=== PATIENT | male | born 1965 | race Caucasian/White ===

== ENCOUNTER 2017-10-24 07:31 | Day surgery (SDC) | payer OTHER ==
[2017-10-24] MEDS ORDERED: Lactated Ringer's 500 ML IV ONE (08:01)
[2017-10-24 08:09] VITALS: O2SAT 98
[2017-10-24] MEDS ORDERED: Midazolam 2 MG/2 ML VIAL ONE (08:28)
[2017-10-24] MEDS ORDERED: Propofol 10 mg/ml Inj (20 ML) ONE (08:29)
[2017-10-24 09:16] VITALS: BP 116/75; PULSE 66; RESP 18; TEMP 97
== END 2017-10-24 10:23 | disposition home or self-care (01) ==
LOC: H.ENDO 07:31
PROVIDERS: ATTEND Internal Medicine Gastroenterology
DX: Z12.11 Encounter for screening for malignant neoplasm of colon (principal); E11.9 Type 2 diabetes mellitus without complications; E78.5 Hyperlipidemia, unspecified; K21.9 Gastro-esophageal reflux disease without esophagitis; K64.8 Other hemorrhoids
CPT/HCPCS: 45378; 82948; J2001; J2250; J2704; J7120